=== PATIENT | female | born 2000 | race Caucasian/White ===

== ENCOUNTER 2024-02-18 20:17 | Emergency (ER) | payer SELFPAY ==
[~2024-02-18] VITALS: Ht 162.6 cm; Wt 100.0 kg
[2024-02-18 20:19] VITALS: O2SAT 99
[2024-02-18] MEDS ORDERED: ACETAMINOPHEN 325MG TABLET PO STA (21:38)
[2024-02-18 21:56] LABS: CLARITY URINE CLOUDY (CLEAR); COLOR URINE YELLOW (YELLOW); GLUCOSE URINE NEGATIVE (NEGATIVE); KETONES URINE 2+ (NEGATIVE); LEUKOCYTE ESTERASE URINE TRACE (NEGATIVE); NITRITE URINE POSITIVE (NEGATIVE); OCCULT BLOOD URINE NEGATIVE (NEGATIVE); PH URINE 7.5 (4.5-8.0); PROTEIN URINE NEGATIVE (NEGATIVE); SPECIFIC GRAVITY URINE 1.013 (1.005-1.030)
[2024-02-18] MEDS ORDERED: ONDANSETRON HCL 4MG/2ML INJ IV ONE (22:15)
[2024-02-18 22:26] LABS: BACTERIA URINE 3+; RBC URINE 0-2 /hpf (0-2); SQUAMOUS EPITHELIAL CELL URINE 1+ /lpf (RARE/1+)
[2024-02-18 22:27] LABS: WBC URINE 25-50 /hpf (0-2)
[2024-02-18 22:29] LABS: HEMATOCRIT. 31.3 % (36.0-48.0); HEMOGLOBIN. 9.9 g/dL (12.0-16.0); MEAN CORPUSCULAR HEMOGLOBIN 22.6 pg (28.0-32.0); MEAN CORPUSCULAR HGB CONC 31.5 g/dL (31.0-37.0); MEAN CORPUSCULAR VOLUME 71.8 fL (81.0-99.0); MEAN PLATELET VOLUME 8.8 fl (7.4-10.4); PLATELET 265 x1000/uL (130-400); RED BLOOD CELL COUNT 4.36 mill/uL (4.2-5.4); RED CELL DISTRIBUTION WIDTH 15.7 % (11.6-14.6); WHITE BLOOD COUNT 13.2 x1000/uL (4.5-11.0)
[2024-02-18 22:30] LABS: DIFFERENTIAL COMMENT 1
[2024-02-18 22:39] LABS: CHLORIDE 104 mEq/L (98-107); POTASSIUM 3.2 mEq/L (3.5-5.1); SODIUM 133 mEq/L (136-145)
[2024-02-18 22:40] LABS: CARBON DIOXIDE 22 mEq/L (21-32)
[2024-02-18 22:41] LABS: CALCIUM 8.8 mg/dL (8.7-10.4)
[2024-02-18] MEDS: SODIUM CHLORIDE 0.9% 1,000 ML IV ONE (22:41)
[2024-02-18 22:45] LABS: CREATININE 0.5 mg/dL (0.6-1.0); GLUCOSE 102 mg/dL (70-105)
[2024-02-18 22:47] LABS: ALANINE AMINOTRANSFERASE 29 IU/L (10-49); ALBUMIN 3.8 g/dL (3.2-4.8); ASPARTATE AMINOTRANSFERASE 28 IU/L (<34)
[2024-02-18 22:48] LABS: BILIRUBIN TOTAL 0.6 mg/dL (0.1-1.0); PROTEIN TOTAL 6.7 g/dL (6.0-8.3)
[2024-02-18 22:53] LABS: UREA NITROGEN BLOOD < 5 mg/dL (9-23)
[2024-02-18 23:00] LABS: B-HCG QUANTITATIVE > 1000 mIU/mL (<3); HYPOCHROMASIA 1+; MICROCYTOSIS 2+; PLATELET ESTIMATE NORMAL
[2024-02-18 23:07] VITALS: TEMP 98.6
[2024-02-18] MEDS: ACETAMINOPHEN 325MG TABLET PO NR (23:07)
[2024-02-18] MEDS: ONDANSETRON HCL 4MG/2ML INJ IV NR (23:07)
[2024-02-19] VITALS: BP 110/51; PULSE 108; RESP 18
[2024-02-19] MEDS ORDERED: ACET-2708 MT (00:32)
[2024-02-19] MEDS ORDERED: CEPH500C2 MT (00:32)
[2024-02-19] MEDS ORDERED: POTA-204 MT (00:32)
[2024-02-19] MEDS ORDERED: ONDA4TAB50 MT (00:32)
[2024-02-19] MEDS: METOCLOPRAMIDE HCL 10MG/2ML VIAL IV NR (00:33)
[2024-02-19] MEDS: POTASSIUM CHLORIDE 20MEQ/PACKET PO NR (00:33)
[2024-02-19] MEDS: SODIUM CHLORIDE 0.9% 1,000 ML IV NR (00:33)
[2024-02-19] MEDS: CEFTRIAXONE 1GM/50ML 50 ML IV NR (00:33)
[2024-02-19] MEDS: CEFTRIAXONE 1GM/50ML 50 ML IV ONE (00:54)
[2024-02-19] MEDS: POTASSIUM CHLORIDE 20MEQ/PACKET ONE (00:54)
[2024-02-19] MEDS: METOCLOPRAMIDE HCL 10MG/2ML VIAL ONE (00:55)
== END 2024-02-19 02:00 | disposition home or self-care (01) ==
LOC: ER 20:17
DX: O23.32 Infections of other parts of urinary tract in pregnancy, second trimester (principal); O26.892 Other specified pregnancy related conditions, second trimester; N39.0 Urinary tract infection, site not specified; Z3A.21 21 weeks gestation of pregnancy; Z20.822 Contact with and (suspected) exposure to COVID-19
CPT/HCPCS: 99285; 76805; 96361; 87426; 80053; 81003; 81025; 84702; 83690; 85025; 86850; 86900; 86901; 87086; 87186; 87077; 36415; 93005; 96365; 96375; J2405; J7030; J0696; J2765